=== PATIENT | male | born 1960 | race Caucasian/White ===

== ENCOUNTER 2022-04-10 04:48 | Inpatient (IN) | payer OTHER ==
[~2022-04-10] VITALS: Ht 177.8 cm; Wt 82.1 kg
[2022-04-10] MEDS ORDERED: ONDANSETRON INJ 8 MG in DEXTROSE 5% WATER 46 ML IV PRN (08:15)
[2022-04-10] MEDS ORDERED: KETOROLAC 15MG/ML VIAL IV ONE (08:15)
[2022-04-10] MEDS ORDERED: SODIUM CHLORIDE 0.9% 1,000 ML IV ONE ×2 (08:15→13:45)
[2022-04-10 09:37] LABS: BASOPHILS % 0.2 % (0.0-2.0); EOSINOPHILS % 0.5 % (0.0-5.0); HEMOGLOBIN. 14.9 g/dL (14.0-18.0); LYMPHOCYTES % 11.6 % (20.0-50.0); MEAN CORPUSCULAR HEMOGLOBIN 30.9 pg (28.0-32.0); MEAN CORPUSCULAR VOLUME 95.6 fL (80.0-94.0); MEAN PLATELET VOLUME 8.4 fl (7.4-10.4); MONOCYTES % 14.3 % (2.0-8.0); NEUTROPHILS % 73.4 % (40.0-76.0); PLATELET 163 x1000/uL (130-400); RED BLOOD CELL COUNT 4.82 mill/uL (4.7-6.1); RED CELL DISTRIBUTION WIDTH 14.7 % (11.6-14.6)
[2022-04-10 09:44] LABS: CHLORIDE 100 mEq/L (98-107)
[2022-04-10] MEDS ORDERED: ASPIRIN 325MG TABLET PO ONE (10:00)
[2022-04-10 11:18] LABS: PARTIAL THROMBOPLASTIN TIME 32.1 sec (23.4-31.0); PROTHROMBIN TIME 10.4 sec (9.6-11.0)
[2022-04-10] MEDS ORDERED: ASPIRIN 325MG TABLET PO NR (12:05)
[2022-04-10] MEDS ORDERED: DOCUSATE SODIUM 100MG CAPSULE PO PRN (13:30)
[2022-04-10] MEDS ORDERED: GUAIFENESIN 200MG/10ML SUGAR FREE UDC PO PRN (13:30)
[2022-04-10] MEDS ORDERED: IPRATROPIUM/ALBUTEROL 0.5-3(2.5)MG/3ML NEB HHN PRN (13:30)
[2022-04-10] MEDS ORDERED: ONDANSETRON HCL 4MG/2ML INJ IV PRN (13:30)
[2022-04-10] MEDS ORDERED: MAGNESIUM/ALUMINUM HYDROXIDE/SIMETHICONE 30ML UDC PO PRN (13:30)
[2022-04-10] MEDS ORDERED: CLONIDINE 0.1MG TABLET PO PRN (13:30)
[2022-04-10] MEDS: PANTOPRAZOLE 40MG DR TABLET PO SCH (14:37)
[2022-04-10] MEDS: ENOXAPARIN 40MG/0.4ML SYR SUBCUT SCH (14:38)
[2022-04-10 15:36] LABS: D-DIMER 1.1 mg/L FEU (<0.50); PROTHROMBIN TIME 10.3 sec (9.6-11.0)
[2022-04-10 15:44] LABS: CREATINE KINASE MB FRACTION 6.9 ng/mL (0.5-3.6)
[2022-04-10 16:08] VITALS: BP 123/73
[2022-04-10 16:12] LABS: PHOSPHORUS 2.3 mg/dL (2.5-4.9)
[2022-04-10 16:50] VITALS: BP 127/63
[2022-04-10 20:00] VITALS: BP 111/73
[2022-04-10] MEDS: ACETAMINOPHEN 325MG TABLET PO PRN (21:53)
[2022-04-10] MEDS: ATORVASTATIN CALCIUM 10MG TABLET PO SCH (21:53)
[2022-04-11] VITALS: BP 98/59
[2022-04-11 00:04] LABS: CREATINE KINASE MB FRACTION 3.7 ng/mL (0.5-3.6)
[2022-04-11 03:58] VITALS: BP 130/82
[2022-04-11] MEDS: LEVOTHYROXINE SODIUM 50MCG TABLET PO SCH (06:57)
[2022-04-11] MEDS: ACETAMINOPHEN 325MG TABLET PO PRN (06:58)
[2022-04-11] MEDS: PANTOPRAZOLE 40MG DR TABLET PO SCH (06:58)
[2022-04-11 07:06] LABS: BASOPHILS % 0.4 % (0.0-2.0); EOSINOPHILS % 1.6 % (0.0-5.0); HEMATOCRIT. 40.3 % (42.0-52.0); HEMOGLOBIN. 13.6 g/dL (14.0-18.0); LYMPHOCYTES % 22.1 % (20.0-50.0); MEAN CORPUSCULAR HEMOGLOBIN 31.1 pg (28.0-32.0); MEAN PLATELET VOLUME 8.8 fl (7.4-10.4); MONOCYTES % 14.7 % (2.0-8.0); NEUTROPHILS % 61.2 % (40.0-76.0); PLATELET 186 x1000/uL (130-400); RED BLOOD CELL COUNT 4.38 mill/uL (4.7-6.1); RED CELL DISTRIBUTION WIDTH 13.4 % (11.6-14.6)
[2022-04-11 07:58] VITALS: BP 112/78
[2022-04-11 08:45] LABS: CHLORIDE 102 mEq/L (98-107)
[2022-04-11 09:04] LABS: HDL CHOLESTEROL 23 mg/dL (40-59); LDL CHOLESTEROL 82 mg/dL (5-100); T4 FREE 1.31 ng/dL (0.76-1.46)
[2022-04-11] MEDS ORDERED: AZITHROMYCIN 500 MG TABLET PO SCH (10:30)
[2022-04-11] MEDS ORDERED: LEVO50TA8 PO (10:38)
[2022-04-11] MEDS ORDERED: LOVA10TA54 PO (10:39)
[2022-04-11] MEDS ORDERED: TAMS-11 PO (10:40)
[2022-04-11] MEDS ORDERED: NABU-139 PO (10:40)
[2022-04-11 12:00] VITALS: BP 137/80
[2022-04-11] MEDS: NABUMETONE 750 MG PO SCH ×2 (13:00→17:23)
[2022-04-11] MEDS: ENOXAPARIN 40MG/0.4ML SYR SUBCUT SCH (14:00)
[2022-04-11] MEDS ORDERED: FENTANYL CITRATE/PF 50MCG/ML 2ML VIAL ONE (14:25)
[2022-04-11] MEDS ORDERED: MIDAZOLAM HCL 2 MG/2 ML VIAL ONE (14:25)
[2022-04-11] MEDS ORDERED: LIDOCAINE HCL/PF 2% 20MG/ML 5 ML/VIAL ONE (14:25)
[2022-04-11] MEDS ORDERED: HEPARIN 1000 UNITS/ML 10ML ONE (14:25)
[2022-04-11] MEDS ORDERED: IODIXANOL 320MG/ML 100 ML BOTTLE IV ONE (14:26)
[2022-04-11] MEDS ORDERED: ATROPINE SULFATE 1MG/10ML SYR IV PRN (15:45)
[2022-04-11 16:00] VITALS: BP 114/80
[2022-04-11 20:05] VITALS: BP 100/62
[2022-04-11] MEDS: ATORVASTATIN CALCIUM 10MG TABLET PO SCH (22:16)
[2022-04-12] VITALS: BP 126/77
[2022-04-12 04:00] VITALS: BP 118/60
[2022-04-12] MEDS: LEVOTHYROXINE SODIUM 50MCG TABLET PO SCH (07:07)
[2022-04-12 07:10] LABS: BASOPHILS % 0.5 % (0.0-2.0); EOSINOPHILS % 3.1 % (0.0-5.0); HEMATOCRIT. 41.1 % (42.0-52.0); HEMOGLOBIN. 14.2 g/dL (14.0-18.0); LYMPHOCYTES % 31.8 % (20.0-50.0); MEAN CORPUSCULAR HEMOGLOBIN 31.4 pg (28.0-32.0); MEAN CORPUSCULAR VOLUME 90.7 fL (80.0-94.0); MEAN PLATELET VOLUME 8.5 fl (7.4-10.4); NEUTROPHILS % 52.6 % (40.0-76.0); PLATELET 225 x1000/uL (130-400); RED BLOOD CELL COUNT 4.53 mill/uL (4.7-6.1); RED CELL DISTRIBUTION WIDTH 13.3 % (11.6-14.6)
[2022-04-12 07:47] LABS: CHLORIDE 105 mEq/L (98-107)
[2022-04-12 08:00] VITALS: BP 118/72
[2022-04-12] MEDS ORDERED: FAMOTIDINE 20MG TABLET PO SCH (09:00)
[2022-04-12] MEDS ORDERED: AZITHROMYCIN 250 MG in DEXT 5% WATER 250 ML IV SCH (09:00)
[2022-04-12] MEDS ORDERED: AZITHROMYCIN 250 MG TABLET PO SCH (09:00)
[2022-04-12] MEDS: NABUMETONE 750 MG PO SCH (09:21)
[2022-04-12] MEDS ORDERED: AZIT500T8 PO (10:23)
[2022-04-12 11:35] VITALS: BP 116/76
[2022-04-12 12:00] VITALS: BP 116/76
[2022-04-13] MEDS ORDERED: AZITHROMYCIN 500 MG TABLET PO SCH (09:00)
== END 2022-04-12 13:25 | disposition home or self-care (01) | DRG 280 ==
LOC: ER 04:48 → 3WST 13:02 → EDBEDREQ 13:03 → EDBEDREQTM 13:03 → ENRESERV 13:55 → 3WST 04-11 19:28
PROVIDERS: ADMIT Internal Medicine; ATTEND Internal Medicine
PROC: 4A023N7 Measurement of Cardiac Sampling and Pressure, Left Heart, Percutaneous Approach (ICD-10-PCS; principal; 2022-04-11)
PROC: B2111ZZ Fluoroscopy of Multiple Coronary Arteries using Low Osmolar Contrast (ICD-10-PCS; 2022-04-11)
PROC: B2151ZZ Fluoroscopy of Left Heart using Low Osmolar Contrast (ICD-10-PCS; 2022-04-11)
DX: I21.4 Non-ST elevation (NSTEMI) myocardial infarction (principal); I40.8 Other acute myocarditis; E87.1 Hypo-osmolality and hyponatremia; E78.5 Hyperlipidemia, unspecified; E11.9 Type 2 diabetes mellitus without complications; E03.9 Hypothyroidism, unspecified; L40.50 Arthropathic psoriasis, unspecified; E88.09 Other disorders of plasma-protein metabolism, not elsewhere classified; I20.0 Unstable angina; J09.X9 Influenza due to identified novel influenza A virus with other manifestations; Z66 Do not resuscitate; Z85.820 Personal history of malignant melanoma of skin; Z20.822 Contact with and (suspected) exposure to COVID-19; Z82.49 Family history of ischemic heart disease and other diseases of the circulatory system; Z80.8 Family history of malignant neoplasm of other organs or systems
CPT/HCPCS: 36415; 71045; 80053; 80061; 82550; 82553; 83036; 83605; 83735; 83880; 83930; 84100; 84145; 84439; 84443; 84481; 84484; 85025; 85379; 87426; 93005; 93306; 93458; 93970; 99285; C1769; C1887; C1893; C9803; J0456; J1644; J1650; J1885; J2250; J3010; J3490; J7030; J7060; Q9967